=== PATIENT | female | born 1980 | race Caucasian/White ===

== ENCOUNTER 2018-03-31 07:07 | Emergency (ER) | payer SELFPAY ==
[~2018-03-31] VITALS: Ht 157.5 cm; Wt 54.0 kg
[2018-03-31] MEDS ORDERED: SODIUM CHLORIDE 0.9% 1,000 ML IV ONE (08:24)
[2018-03-31] MEDS ORDERED: ONDANSETRON HCL 4MG/2ML VIAL IV STA (08:24)
[2018-03-31] MEDS ORDERED: MORPHINE SULFATE 4 MG/ML CPJ (NOT FOR IM USE) IV STA (08:24)
[2018-03-31 08:43] LABS: CLARITY URINE CLEAR (CLEAR); COLOR URINE YELLOW (YELLOW); KETONES URINE TRACE (NEGATIVE); LEUKOCYTE ESTERASE URINE NEGATIVE (NEGATIVE); NITRITE URINE NEGATIVE (NEGATIVE); OCCULT BLOOD URINE NEGATIVE (NEGATIVE); PH URINE >=9.0 (4.5-8.0); PROTEIN URINE NEGATIVE (NEGATIVE); SPECIFIC GRAVITY URINE 1.033 (1.005-1.030); UROBILINOGEN URINE 0.2 E.U./dL (0.2-1.0)
[2018-03-31 08:59] LABS: BASOPHILS % 0.3 % (0.0-2.0); EOSINOPHILS % 1.2 % (0.0-5.0); HEMATOCRIT. 37.6 % (36.0-48.0); LYMPHOCYTES % 30.5 % (20.0-50.0); MEAN CORPUSCULAR HEMOGLOBIN 23.8 pg (28.0-32.0); MEAN CORPUSCULAR VOLUME 74.6 fL (81.0-99.0); MEAN PLATELET VOLUME 7.8 fl (7.4-10.4); MONOCYTES % 5.6 % (2.0-8.0); NEUTROPHILS % 62.4 % (40.0-76.0); PLATELET 506 x1000/uL (130-400); RED BLOOD CELL COUNT 5.04 mill/uL (4.2-5.4); RED CELL DISTRIBUTION WIDTH 16.4 % (11.6-14.6)
[2018-03-31 09:00] LABS: CHLORIDE 99 mEq/L (98-107)
[2018-03-31 09:03] LABS: INR 0.9; PARTIAL THROMBOPLASTIN TIME 22.2 sec (23.4-31.0); PROTHROMBIN TIME 9.9 sec (9.4-11.6)
[2018-03-31] MEDS ORDERED: IOHEXOL-300 100 ML BOTTLE ONE (09:38)
[2018-03-31 12:25] VITALS: BP 133/73
== END 2018-03-31 12:35 | disposition home or self-care (01) ==
LOC: ER 08:15
DX: R10.12 Left upper quadrant pain (principal); K76.0 Fatty (change of) liver, not elsewhere classified; K44.9 Diaphragmatic hernia without obstruction or gangrene
CPT/HCPCS: 36415; 74177; 80053; 81003; 81025; 83690; 85025; 85610; 85730; 96361; 96374; 96375; 99285; J2270; J2405; J7030; Q9967